=== PATIENT | female | born 1965 | race Caucasian/White ===

== ENCOUNTER 2017-07-03 05:01 | Day surgery (SDC) | payer OTHER ==
[2017-06-28 11:59] VITALS: BMI 24.0
--- NOTE | 2017-07-02 19:20 | HP ---
[facility] - Chief Complaint Chief Complaint: Abnormal uterine bleeding. History of Present Illness: This patient has had continuous uterine bleeding for one months duration. History Source: Patient Limitations to Obtaining History: No Limitations - Past Medical History Allergies/Adverse Reactions: Allergies Allergy/AdvReac Type Severity Reaction Status Date / Time No Known Allergies Allergy Verified 06/28/17 11:54 VERIFICATION SPECIALIST: No: Alzheimer's, CVA, Dementia, Migraine, Multiple Sclerosis, Peripheral Neuropathy, Parkinson's, Seizure, Syncope, TIA, Vertigo, Other Cardiovascular: No: AFIB, Aneurysm, Aortic Insufficiency, Aortic Stenosis, CAD, CHF, Deep Vein Thrombosis, HTN, Hyperlipdemia, NC, Mitral Insufficiency, Mitral Stenosis, Murmur, Pulmonary Hypertension, Other Pulmonary: No: Asthma, Bronchitis, Cancer, COPD, O2 Dependent, Pneumonia, Previously Intubated, Pulmonary Embolus, Pulmonary Fibrosis, Sleep Apnea, Other Gastrointestinal: No: Ascites, Cancer, Constipation, Crohn's Disease, Diverticulitis, Diverticulosis, Esophageal Varices, Gastritis, GERD, GI Bleed, Hemorrhoids, Hiatal Hernia, Inflamatory Bowel Disease, Irritable Bowel Disease, Pancreatitis, Peptic Ulcer Disease, Ulcerative Colitis, Other Hepatobiliary: No: Cirrhosis, Cholelithiasis, Cholecystitis, Choledocholithiasis , Hepatitis A, Hepatitis B, Hepatitis C, Other Renal/: No: Renal Failure, Renal Inusuff, BPH, Cancer, Hematuria, Hemodialysis , Neurogenic Bladder, Renal Calculi, UTI, Other ...LMP: 05/25/17 ...LMP Comment: irregular ...: No ...: 3 ...Para: 3 Heme/Onc: No: Anemia, B12 Deficiency, Bleeding Disorder, Cancer, Current Chemotherapy, Current Radiation Therapy, Hemochromatosis, Hypercoaguable State, Myeloproliferative Synd, Sickle Cell Disease, Sickle Cell Trait, Thrombocytopenia, Other Infectious Disease: No: AIDS, C-Diff, Herpes Zoster, HIV, MRSA, STD's, Tuberculosis, VREF, Other Musculoskeletal: No: Bursitis, Chronic low back pain, Hemiparesis, Hemiplegia, Osteoarthritis, Paraplegia, Other Rheumatology: No: Fibromyalgia, Gout, Lupus, Rheumatoid Arthritis, Sarcoidosis, Vasculitis, Other ENT: No: Allergic Rhinitis, Sinusitis, Other Endocrine: No: Gadsden's Disease, Hortencia's Disease, Diabetes Insipidus, Diabetes Mellitus, Hyperparathyroidism, Hyperthyroidism, Hypothyroidism, Osteopenia, SIADH, Other Dermatology: No: Basal Cell, Cellulitis, Eczema, Melanoma, Psoriasis, Squamous Cell, Other - Current Medications Current Medications: Home Medications Medication Instructions Recorded NK [No Known Home Medication] 06/28/17 Satellite Physical Exam - Physical Examination General Appearance: Well Nourished, Well Developed, Alert & Oriented x3 ENT: Clear, No Discharge, No masses Lung: Clear to auscultation Heart: Regular rate & rhythm, Normal S1, Normal S2 Breasts: Soft, Non-Tender, No masses bilaterally Abdomen: Soft, No tenderness, No CVA Extremities: No edema, No tenderness/swelling Pelvic Exam: Within normal limits External Genitalia, Within normal limits Vagina, Within normal limits Cervix, Within normal limits Uterus, Within normal limits [facility] Neurological: Intact, Alert, Oriented Satellite Impression/Plan - Impression/Plan Impression: Abnormal uterine bleeding Operative Procedure: Hysteroscopy with D/C and polypectomy if needed Date to be Performed: 07/03/17
[2017-07-03] MEDS ORDERED: DEXAMETHASONE SOD PHOSPHATE 4 MG/1 ML VIAL ONE (06:52)
[2017-07-03] MEDS ORDERED: KETOROLAC TROMETHAMINE 30 MG/1 ML VIAL ONE (06:53)
[2017-07-03] MEDS ORDERED: SUCCINYLCHOLINE CHLORIDE 200 MG/10 ML VIAL ONE (06:53)
[2017-07-03] MEDS ORDERED: ePHEDrine SULFATE 50 MG/1 ML AMPULE ONE (06:53)
[2017-07-03] MEDS ORDERED: LIDOCAINE HCL/PF 2% SDV 5ML VIAL ONE (06:54)
[2017-07-03] MEDS ORDERED: PROPOFOL 20 ML ONE (06:54)
[2017-07-03] MEDS ORDERED: ROCURONIUM BROMIDE 50 MG/5 ML VIAL ONE (06:56)
[2017-07-03] MEDS ORDERED: MIDAZOLAM HCL 2 MG/2 ML SINGLE DOSE VIAL ONE (06:57)
[2017-07-03] MEDS ORDERED: oxyCODONE HCL 5 MG TABLET PO PRN (07:11)
[2017-07-03] MEDS ORDERED: LACTATED RINGERS SOLUTION 1,000 ML IV SCH (07:15)
[2017-07-03 08:15] VITALS: TEMP 98.1
--- NOTE | 2017-07-03 08:54 | OP ---
DATE OF OPERATION: 07/03/2017 PREOPERATIVE DIAGNOSIS: Irregular uterine bleeding. POSTOPERATIVE DIAGNOSIS: Irregular uterine bleeding. OPERATIVE PROCEDURE: Hysteroscopy with dilatation and curettage. SURGEON: Ismael Camarillo MD ANESTHESIA: MAC. ESTIMATED BLOOD LOSS: 5 mL. DESCRIPTION OF PROCEDURE: The patient was brought to the operating room, placed in a supine position, given MAC anesthesia by the county bailiff, placed in the lithotomy position, prepped and draped in the usual manner for dilatation and curettage, hysteroscopy. The uterus was anteverted, normal in size. Adnexa negative. A speculum was placed into the vagina. The anterior lip of the cervix was grasped with a tenaculum after the vagina was prepped and draped in the usual manner. The uterus was sounded to 7.5 cm. The cervix was dilated with Gaviria dilators. Hysteroscopy was performed. The endometrium appeared normal. There were blood clots and loose tissue coming off the endometrial cavity. A dilatation and curettage was carried out with a medium-sized curette. An endocervical curettage was also done. The patient tolerated the procedure well, hemostasis was good, the tenaculum was released from the cervix, and the patient was transferred to the recovery room in good condition. Sherrie [id number]
[2017-07-03 11:39] VITALS: BP 98/60; PULSE 60
--- NOTE | 2017-07-05 12:59 | PATH ---
Surgical Pathology Report Patient Name: GWYN WOODARD [facility]. Rec. #: [id number] /Age/Gender: 1965 (Age: 52) / F Account: [id number] Location: [facility] SURGICAL Taken: 07/03/2017 Received: 07/04/2017 Reported: 07/05/2017 Physicians: Ismael Camarillo M.D. Specimen(s) Received A: ENDOMETRIAL CURETTINGS B: ENDOCERVICAL CURETTINGS Clinical History Irregular menses Final Diagnosis A. ENDOMETRIAL CURETTINGS, DILATATION AND CURETTAGE: FRAGMENTS OF ENDOMETRIAL POLYP AND BENIGN CERVICAL TISSUE. B. ENDOCERVICAL CURETTINGS, DILATATION AND CURETTAGE: FRAGMENTS OF BENIGN CERVICAL TISSUE. Electronically Signed Poppy Man M.D. Gross Description A. Received in formalin labeled "endometrial curettings," is a 1.7 x 1.3 x 0.3 cm aggregate of tanner-brown soft tissue fragments. The formalin is filtered and the specimen is entirely submitted in one cassette. B. Received in formalin labeled "endocervical curettings," is a 0.4 x 0.4 x 0.1 cm aggregate of tanner-brown soft tissue fragments. The formalin is filtered and the specimen is entirely submitted in one cassette. 07/04/201707/04/2017
== END 2017-07-03 11:30 | disposition home or self-care (01) ==
LOC: JASU-SURG 05:01
PROVIDERS: ATTEND Obstetrics & Gynecology
PROC: 0UDB7ZX Extraction of Endometrium, Via Natural or Artificial Opening, Diagnostic (ICD-10-PCS; principal; 2017-07-03 07:30)
PROC: 0UJD8ZZ Inspection of Uterus and Cervix, Via Natural or Artificial Opening Endoscopic (ICD-10-PCS; 2017-07-03 07:30)
DX: N93.9 Abnormal uterine and vaginal bleeding, unspecified (principal)
CPT/HCPCS: 84703; 88305-TC; 94760